=== PATIENT | male | born 1985 | race Two or more races ===

== ENCOUNTER 2016-06-20 01:22 | Emergency (ER) | payer MEDICAID ==
[~2016-06-20] VITALS: Ht 172.7 cm; Wt 99.8 kg
--- NOTE | 2016-06-20 01:24 | NUR ---
PT WALKED INTO ER C/O LEFT UPPER THIGH BUG BITE X 3-4 DAYS, BELIEVES TO BE INFECTED, PT ALERT, ORIENTED X 4, NO RESP DISTRESS NOTED OR REPORTED UPON ASSESSMENT.. MD AT BEDSIDE...
--- NOTE | 2016-06-20 01:43 | NUR ---
Patient discharged to home in stable conditon. Written and verbal after care instructions given. Patient verbalizes understanding of instructions. PT walked out of ER unassisted with belongings at side...
[2016-06-20] MEDS ORDERED: SULFAMETH/TRIMETH 800/160 MG TABLET PO ONE (01:45)
[2016-06-20] MEDS ORDERED: SULFAMETH/TRIMETH 800/160 MG TABLET ONE (01:49)
== END 2016-06-20 01:44 | disposition home or self-care (01) ==
LOC: ER 01:28
DX: S70.362A Insect bite (nonvenomous), left thigh, initial encounter (principal); F10.20 Alcohol dependence, uncomplicated; W57.XXXA Bitten or stung by nonvenomous insect and other nonvenomous arthropods, initial encounter; Y93.89 Activity, other specified; Y99.8 Other external cause status; Y92.89 Other specified places as the place of occurrence of the external cause
CPT/HCPCS: A4663